=== PATIENT | male | born 1970 | race Caucasian/White ===

== ENCOUNTER → 2016-02-28 | Outpatient (CLI) | payer OTHER ==
--- NOTE | 2016-02-28 11:15 | US ---
EXAMINATION TYPE: US abdomen complete DATE OF EXAM: 02/28/2016 9:02 AM COMPARISON: No previous CLINICAL HISTORY: 46-year-old male hernia anterior abdominal wall, Abdominal tenderness. History of v iral hepatitis C. TECHNIQUE: Multiple sonographic images of the abdomen were obtained. FINDINGS: Liver Length: 17.8cm Gallbladder Wall: 0.2cm CBD: 0.3cm Spleen: 10.7cm Right Kidney: 10.0 x 5.2 x 4.5cm Left Kidney: 11.1 x 5.6 x 4.7cm Pancreas: Suboptimal visualization secondary to shadowing from bowel gas. Liver: Upper limits ofwnlrmal in size with coarsened echotexture. No focal lesion is identified. Gallbladder: No abnormal gallbladder distention, wall thickening, pericholecystic fluid, or shadowing calculi. Evidence for sonographic Phelps's sign: no CBD: visualized portions within normal limits, limited by overlying bowel gas Spleen: Normal size. Right Kidney: No hydronephrosis. Left Kidney: No hydronephrosis. Upper IVC: Not well seen. Abd Aorta: No aneurysm visualized. Additional scanning was performed toward the right of midline at the patient's area of tenderness. No discrete hernia is identified. IMPRESSION: 1. Borderline hepatomegaly with coarsened liver echotexture could reflect patient's known underlying hepatocellular disease. 2. Targeted scanning along the right of midline at the site of patient's tenderness. No discrete genet ia is identified.
== END | disposition home or self-care (01) ==
LOC: RADUSWWP 08:16
PROVIDERS: ATTEND Family Medicine
DX: R16.0 Hepatomegaly, not elsewhere classified (principal)
CPT/HCPCS: 76700

== ENCOUNTER → 2016-03-11 | Outpatient (CLI) | payer OTHER ==
--- NOTE | 2016-03-11 13:46 | CT ---
EXAMINATION TYPE: CT abdomen w con DATE OF EXAM: 03/11/2016 1:28 PM COMPARISON: NONE HISTORY: Swelling Lt of umbilicus CT DLP: 1426 mGycm Automated exposure control for dose reduction was used. TECHNIQUE: Helical acquisition of images was performed from the lung bases through the top of iliac crest to include entire abdomen. CONTRAST: Performed with Oral Contrast and with IV Contrast, patient injected with 100 ml mL of Omnipaque 300. FINDINGS: LUNG BASES: No significant abnormality is appreciated. LIVER/GB: No significant abnormality is appreciated. PANCREAS: No significant abnormality is seen. SPLEEN: No significant abnormality is seen. ADRENALS: No significant abnormality is seen. KIDNEYS: No significant abnormality is seen. BOWEL: No significant abnormality is seen. LYMPH NODES: No pathologic adenopathy OSSEOUS STRUCTURES: No significant abnormality is seen. OTHER: Aorta of normal caliber. IMPRESSION: NO ACUTE PROCESS. NO SOFT TISSUE MASS IN THE PERIUMBILICAL REGION.
== END | disposition home or self-care (01) ==
LOC: RADCTMAIN 12:26
PROVIDERS: ATTEND Nurse Practitioner Family
DX: R19.09 Other intra-abdominal and pelvic swelling, mass and lump (principal)
CPT/HCPCS: 74160; Q9967

== ENCOUNTER → 2016-11-20 | Outpatient (CLI) | payer OTHER ==
--- NOTE | 2016-11-20 19:44 | MR ---
EXAMINATION TYPE: MR knee LT wo con DATE OF EXAM: 11/20/2016 COMPARISON: NONE HISTORY: Pain TECHNIQUE: Multiplanar, multisequence imaging of the left knee is performed without IV contrast. FINDINGS: MEDIAL MENISCUS: Intrasubstance signal along the posterior horn medial meniscus noted. No definite ar ticular extension. Finding most likely in the basis of myxoid degeneration rather than subtle tear. LATERAL MENISCUS: Intrasubstance signal posterior horn medial meniscus suspicious for mucoid degenera tion. CRUCIATE LIGAMENTS: The anterior and posterior cruciate ligaments are intact and unremarkable. COLLATERAL LIGAMENTS: The medial collateral ligament and lateral collateral ligament complex are inta ct and unremarkable. EXTENSOR MECHANISM: Visualized quadriceps and patellar tendons are intact. EFFUSION: Small amount of fluid in the suprapatellar bursa. There is fluid surrounding the semimembr anosus tendon along the posterior medial aspect of the knee joint. POPLITEAL CYST: No popliteal/kennedy cyst. TRICOMPARTMENT SPACES: There is abnormal signal within the patellar cartilage compatible with chondro malaciaS mall. Fissure noted. There is a small amount of fluid in the suprapatellar bursa. Retinaculu m intact. BONE MARROW SIGNAL: No focal abnormal marrow signal is appreciated. IMPRESSION: 1. Signal posterior horn the medial and lateral meniscus most typical of mucoid degeneration, subtle tear not excluded. 2. 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 3. There is fluid surrounding the semimembranosus tendon compatible with semimembranosus bursitis
== END ==
LOC: RADMRIMAIN 18:26
PROVIDERS: ATTEND Family Medicine
DX: M23.352 Other meniscus derangements, posterior horn of lateral meniscus, left knee (principal); M23.322 Other meniscus derangements, posterior horn of medial meniscus, left knee; M22.42 Chondromalacia patellae, left knee